=== PATIENT | female | born 1945 | race Caucasian/White ===

== ENCOUNTER 2020-02-21 09:57 | Emergency (ER) | payer MEDICARE, OTHER ==
--- NOTE | 2020-02-21 10:22 | ED Physician Documentation ---
PD HPI URI - Stated complaint Stated Complaint: BODY ACHES - Chief complaint Chief Complaint: General - History obtained from History obtained from: Patient - History of Present Illness Timing - onset: How many days ago (3) Timing duration: Days (3) Timing details: Abrupt onset (suddenly feeling weak, achy, fatigue 3 days ago. Maybe some mild chest pressure. No fever nor cough.), Still present Associated symptoms: Other (muscle aches, malaise). No: Fever Contributing factors: No: Sick contact, Travel, Immunocompromised Similar symptoms before: Has not had sx before Recently seen: Not recently seen Review of Systems Constitutional: reports: Myalgias (just for 3 days), Fatigue. denies: Fever Nose: denies: Rhinorrhea / runny nose, Congestion Throat: denies: Sore throat Cardiac: denies: Palpitations Respiratory: reports: Dyspnea. denies: Cough, Wheezing GI: reports: Nausea. denies: Abdominal Pain, Vomiting, Diarrhea Skin: denies: Rash, Lesions Neurologic: reports: Generalized weakness. denies: Focal weakness, Numbness, Near syncope PD PAST MEDICAL HISTORY - Past Medical History Cardiovascular: Hypertension Respiratory: None Neuro: None Endocrine/Autoimmune: None GI: None GRINDER OPERATOR: None - Present Medications Home Medications: Ambulatory Orders Medication Instructions Recorded Confirmed Atorvastatin Calcium 20 mg PO DAILY 02/21/20 02/21/20 Cholecalciferol [Vitamin D3] 5,000 unit PO DAILY 02/21/20 02/21/20 Cyanocobalamin (Vitamin B-12) 2,500 mcg ORAL DAILY 02/21/20 02/21/20 [Vitamin B-12] Empagliflozin [Jardiance] 10 mg PO DAILY 02/21/20 02/21/20 Losartan Potassium 25 mg PO DAILY 02/21/20 02/21/20 Metformin HCl [Metformin HCl ER] 1,000 mg PO BID 02/21/20 02/21/20 Pioglitazone HCl [Actos] 15 mg PO DAILY 02/21/20 02/21/20 - Allergies Allergies/Adverse Reactions: Allergies Allergy/AdvReac Type Severity Reaction Status Date / Time lisinopril Allergy Unknown Verified 02/21/20 10:59 - Living Situation Living Situation: reports: Alone Living Arrangement: reports: At home - Social History Does the pt smoke?: No Does the pt drink ETOH?: No Does the pt have substance abuse?: No - Family History Family history: reports: Non contributory PD ED PE NORMAL - Vitals Vital signs reviewed: Yes - General General: Alert and oriented X 3, No acute distress, Well developed/nourished - HEENT HEENT: Moist mucous membranes, Pharynx benign - Neck Neck: Supple, no meningeal sign, No adenopathy - Cardiac Cardiac: RRR, No murmur - Respiratory Respiratory: Clear bilaterally - Abdomen Abdomen: Normal bowel sounds, Soft, Non tender, Non distended - Female Female : Deferred - Rectal Rectal: Deferred - Back Back: No CVA TTP - Derm Derm: Normal color, Warm and dry - Extremities Extremities: No deformity, No tenderness to palpate, Normal ROM s pain, No edema, No calf tenderness / cord - Neuro Neuro: Alert and oriented X 3, No motor deficit, Normal speech Eye Opening: Spontaneous Motor: Obeys Commands Verbal: Oriented GCS Score: 15 Results - Vitals Vitals: Vital Signs - 24 hr 02/21/20 02/21/20 02/21/20 10:13 11:00 12:34 Temperature 36.2 C L 37.1 C 37 C Heart Rate 54 L 54 L 57 L Respiratory 16 14 18 Rate Blood Pressure 135/68 H 133/72 H 136/65 H O2 Saturation 97 96 96 02/21/20 14:02 Temperature Heart Rate 66 Respiratory 8 L Rate Blood Pressure 133/60 H O2 Saturation 95 Oxygen O2 Source Room air - Labs Labs: Laboratory Tests 02/21/20 02/21/20 02/21/20 11:05 11:05 11:05 WBC 10.3 RBC 5.42 H Hgb 16.0 Hct 49.7 H MCV 91.7 MCH 29.5 MCHC 32.2 RDW 12.6 Plt Count 237 MPV 10.2 Neut # (Auto) 8.1 H Lymph # (Auto) 1.7 Bureau # (Auto) 0.4 Eos # (Auto) 0.0 Baso # (Auto) 0.0 Absolute Nucleated RBC 0.00 Nucleated RBC % 0.0 Manual Slide Review Indicated Platelet Estimate NORMAL (130-450,000) Platelet Morphology NORMAL APPEARANCE RBC Morph Micro Appear NORMAL APPEARANCE ESR Sodium 140 Potassium 4.5 Chloride 103 Carbon Dioxide 26 Anion Gap 11.0 BUN 16 Creatinine 0.8 Estimated GFR (MDRD) 71 L Glucose 248 H Lactic Acid 1.4 Calcium 9.3 Magnesium 2.3 Total Bilirubin 1.2 H AST 76 H ALT 25 Alkaline Phosphatase 108 Troponin I High Sens B-Natriuretic Peptide Total Protein 7.4 Albumin 3.8 Globulin 3.6 Albumin/Globulin Ratio 1.1 Lipase 23 Urine Color Urine Clarity Urine pH Ur Specific Foster Urine Protein Urine Glucose (UA) Urine Ketones Urine Occult Blood Urine Nitrite Urine Bilirubin Urine Urobilinogen Ur Leukocyte Esterase Ur Microscopic Review Urine Culture Comments 02/21/20 02/21/20 02/21/20 11:05 11:05 11:05 WBC RBC Hgb Hct MCV MCH MCHC RDW Plt Count MPV Neut # (Auto) Lymph # (Auto) Bureau # (Auto) Eos # (Auto) Baso # (Auto) Absolute Nucleated RBC Nucleated RBC % Manual Slide Review Platelet Estimate Platelet Morphology RBC Morph Micro Appear ESR 2 Sodium Potassium Chloride Carbon Dioxide Anion Gap BUN Creatinine Estimated GFR (MDRD) Glucose Lactic Acid Calcium Magnesium Total Bilirubin AST ALT Alkaline Phosphatase Troponin I High Sens 07536.5 H* B-Natriuretic Peptide 239 H Total Protein Albumin Globulin Albumin/Globulin Ratio Lipase Urine Color Urine Clarity Urine pH Ur Specific Foster Urine Protein Urine Glucose (UA) Urine Ketones Urine Occult Blood Urine Nitrite Urine Bilirubin Urine Urobilinogen Ur Leukocyte Esterase Ur Microscopic Review Urine Culture Comments 02/21/20 11:20 WBC RBC Hgb Hct MCV MCH MCHC RDW Plt Count MPV Neut # (Auto) Lymph # (Auto) Bureau # (Auto) Eos # (Auto) Baso # (Auto) Absolute Nucleated RBC Nucleated RBC % Manual Slide Review Platelet Estimate Platelet Morphology RBC Morph Micro Appear ESR Sodium Potassium Chloride Carbon Dioxide Anion Gap BUN Creatinine Estimated GFR (MDRD) Glucose Lactic Acid Calcium Magnesium Total Bilirubin AST ALT Alkaline Phosphatase Troponin I High Sens B-Natriuretic Peptide Total Protein Albumin Globulin Albumin/Globulin Ratio Lipase Urine Color YELLOW Urine Clarity CLEAR Urine pH 5.5 Ur Specific Foster 1.020 Urine Protein NEGATIVE Urine Glucose (UA) >=1000 H Urine Ketones 40 H Urine Occult Blood NEGATIVE Urine Nitrite NEGATIVE Urine Bilirubin NEGATIVE Urine Urobilinogen 0.2 (NORMAL) Ur Leukocyte Esterase NEGATIVE Ur Microscopic Review NOT INDICATED Urine Culture Comments NOT INDICATED PD MEDICAL DECISION MAKING - ED course Complexity details: reviewed results (Her white count and lactate are normal. Urinalysis and chest x-ray are normal without any signs of infection. The EKG showed a left bundle branch block and no prior comparisons available. Trop 10K.), considered differential (So considerations were for infectious causes such as UTI pneumonia or viral illness. 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
[2020-02-21] MEDS ORDERED: ACETAMINOPHEN 325 MG TABLET PO STA (10:47)
[2020-02-21] MEDS ORDERED: ONDANSETRON ODT 4 MG TABLET TL STA (10:47)
--- NOTE | 2020-02-21 11:08 | XRAY Report ---
PROCEDURE: Chest 2 View X-Ray INDICATIONS: dyspnea/ cough TECHNIQUE: 2 view(s) of the chest. COMPARISON: None. FINDINGS: Surgical changes and devices: Cholecystectomy clips are seen. Lungs and pleura: No pleural effusions or pneumothorax. Lungs are clear, yet mildly hyperexpanded. Mediastinum: The aorta is prominent and tortuous. The cardiac contours are within normal limits. Bones and chest wall: No suspicious bony abnormalities. Age-appropriate degenerative changes are see n. Soft tissues appear unremarkable. IMPRESSION: No infiltrates are seen. Mildly hyperexpanded lungs. Postoperative and degenerative changes are seen. Reviewed by: Ruben Gallegos MD on 02/21/2020 10:06 AM JOE Approved by: Ruben Gallegos MD on 02/21/2020 10:06 AM JOE Station ID: [id number]
[2020-02-21 11:17] LABS: BASOPHILS % (AUTO) 0.4 %; EOSINOPHILS % (AUTO) 0.1 %; LYMPHOCYTES # (AUTO) 1.7 10^3/uL (1.5-3.5); LYMPHOCYTES % (AUTO) 16.5 %; MEAN CORPUSCULAR HEMOGLOBIN 29.5 pg (27.0-31.0); MEAN CORPUSCULAR HGB CONC 32.2 g/dL (32.0-36.0); MEAN CORPUSCULAR VOLUME 91.7 fL (81.0-99.0); MEAN PLATELET VOLUME 10.2 fL (7.9-10.8); MONOCYTES # (AUTO) 0.4 10^3/uL (0.0-1.0); MONOCYTES % (AUTO) 3.5 %; NEUTROPHILS # (AUTO) 8.1 10^3/uL (1.5-6.6); NEUTROPHILS % (AUTO) 78.7 %; PLT - PLATELET COUNT 237 10^3/uL (130-450); RED BLOOD COUNT 5.42 10^6/uL (4.20-5.40); RED CELL DISTRIBUTION WIDTH 12.6 % (12.0-15.0); WHITE BLOOD COUNT 10.3 x10^3/uL (4.8-10.8)
[2020-02-21 11:30] LABS: ALBUMIN 3.8 g/dL (3.2-5.5); ALBUMIN/GLOBULIN RATIO 1.1 (1.0-2.2); BILIRUBIN,TOTAL 1.2 mg/dL (0.2-1.0); CALCIUM 9.3 mg/dL (8.5-10.3); CREATININE 0.8 mg/dL (0.4-1.0); MAGNESIUM 2.3 mg/dL (1.7-2.8); TOTAL PROTEIN 7.4 g/dL (6.7-8.2)
[2020-02-21 11:34] LABS: BILIRUBIN,URINE NEGATIVE (NEGATIVE); GLUCOSE, URINE (UA) >=1000 mg/dL (NEGATIVE); KETONES,URINE (UA) 40 mg/dL (NEGATIVE); LEUKOCYTE ESTERASE, URINE NEGATIVE (NEGATIVE); NITRITE,URINE NEGATIVE (NEGATIVE); OCCULT BLOOD,URINE NEGATIVE (NEGATIVE); PH,URINE 5.5 PH (5.0-7.5); PROTEIN,URINE NEGATIVE (NEGATIVE); UROBILINOGEN,URINE 0.2 (NORMAL) E.U./dL (NORMAL)
[2020-02-21 11:38] LABS: PLATELET ESTIMATE, MANUAL NORMAL (130-450,000) (NORMAL); PLATELET MORPHOLOGY NORMAL APPEARANCE (NORMAL); RBC MORPHOLOGY (MULTIPLE) NORMAL APPEARANCE (NORMAL)
[2020-02-21 11:43] LABS: CLARITY,URINE CLEAR (CLEAR)
[2020-02-21] MEDS ORDERED: ASPIRIN CHEW 81 MG TABLET PO STA (12:26)
[2020-02-21] MEDS ORDERED: ATORVASTATIN 10 MG TABLET PO STA (12:28)
[2020-02-21 14:54] VITALS: BP 138/66
== END 2020-02-21 14:55 | disposition short-term general hospital (02) ==
LOC: ED 09:57
DX: R53.81 Other malaise (principal); R53.83 Other fatigue; M79.10 Myalgia, unspecified site; I44.7 Left bundle-branch block, unspecified; R79.89 Other specified abnormal findings of blood chemistry; R07.89 Other chest pain; I10 Essential (primary) hypertension
CPT/HCPCS: 36415; 71046; 80053; 81003; 83605; 83690; 83735; 83880; 84484; 85025; 85651; 93005; 99284; 99285; A9270; Q0162; U0004; 81001; 87086

== ENCOUNTER 2020-02-21 14:54 | Outpatient (CLI) | payer MEDICARE, OTHER | END 2020-02-21 14:55 | disposition short-term general hospital (02) | LOC: EMS 14:54 | PROVIDERS: ATTEND Surgery | DX: R53.1 Weakness (principal); R52 Pain, unspecified; R11.0 Nausea; R79.89 Other specified abnormal findings of blood chemistry | CPT/HCPCS: A0425; A0426 ==